=== PATIENT | female | born 1950 | race Caucasian/White ===

== ENCOUNTER 2017-01-14 05:03 | Day surgery (SDC) | payer OTHER, MEDICARE ==
--- NOTE | ~2017-01-14 | OP ---
Record Of Operation [facility] [address] [place]. [address] NAME: JEANE LEI : 52 STATUS : REG [facility] [place] PAT#: [id number] AGE: 66 ADM/REG DATE : 01/14/17 MR#: [id number] REPORT SERV DATE: 01/14/17 DICTATED BY: VENANCIO NUÑEZ DATE: 01/14/17 REPORT STATUS : Draft TRANSCRIBED BY: MODL DATE: 01/14/17 DATE OF PROCEDURE: 01/14/2017 PREOPERATIVE DIAGNOSIS: Colon cancer. POSTOPERATIVE DIAGNOSIS: Colon cancer. PROCEDURE: Port-A-Cath placement. SURGEON: Venancio Nuñez M.D. RESIDENT SURGEON: Mark Castellano MD ANESTHESIA: MAC. ESTIMATED BLOOD LOSS: Less than 5 mL. IV FLUIDS: Approximately 500 mL of crystalloid. SPECIMEN: None. DRAINS: None. COMPLICATIONS: None. FINDINGS: 6-Puerto Rican Port-A-Cath was placed at the tip, but just proximal to the SVC right atrial junction. INDICATIONS FOR PROCEDURE: This 66-year-old female, who recently underwent a laparoscopic right colectomy for colon cancer and is now in need of central venous access on long-term for chemotherapy treatment. The above procedure was offered to the patient. Risks, benefits, and alternatives were explained, the patient expressed verbal understanding and wished to proceed for this elective procedure. DESCRIPTION OF PROCEDURE: After informed consent was obtained, the patient was taken back to the operating theatre, the patient was then laid on the operating table in supine position. The patient was given adequate analgesia and anesthesia, and the surgery site was then prepped and draped in a standard fashion. A formal time-out was then performed. Appropriate preoperative antibiotics had been administered. All present in the operating room were in agreement and elected to proceed with the procedure. We began by administering local anesthetic on the right side of the neck over the right internal jugular vein over the right clavicle, and then to the right chest wall, and then under ultrasound guidance, located the right internal jugular vein, accessed it with an 18-gauge access needle. We cannulated the right internal jugular vein. We then secured the guidewire to the sterile drapes. We then made an incision over the right chest wall just inferior to the right clavicle, and use of electrocautery and blunt dissection to create a pocket for our port. Record Of Operation [facility] [address] [facility] [address] NAME: JEANE LEI : 52 STATUS : REG [facility] [place] PAT#: [id number] AGE: 66 ADM/REG DATE : 01/14/17 MR#: [id number] REPORT SERV DATE: 01/14/17 DICTATED BY: VENANCIO NUÑEZ DATE: 01/14/17 REPORT STATUS : Draft TRANSCRIBED BY: ALEXIA DATE: 01/14/17 We then placed two anchoring sutures of 3-0 Vicryl in the medial and lateral area of our incision onto the chest wall, threaded this through our port but not placed in the pocket just yet. We then jody an incision over our guidewire with an 11 blade into the dilator sheath and passed over the guidewire until into place, removed the guidewire and dilator leaving the peel-away sheath in place, put into position. We then took our 6-Puerto Rican catheter and advanced it down the peel-away sheath and then removed the peel-away sheath. We pulled the catheter back until it was approximately at 15 cm. Then using the fluoroscopy, reviewed that the catheter tip was just proximal to the SVC right atrial junction. We then connected the distal end of our 6-Puerto Rican catheter to the tunneler and tunneled down to our pre-created right chest wall pocket, and cut the catheter to sufficient length, attached to the port which was placed in the pocket and secured down with our anchoring sutures. We then accessed the port with a Roberts needle. We had a good blood return irrigated easily as well. We took one final fluoroscopy picture noting that the port was in good position and there was a gentle curve throughout the catheter, no kinks, and the tip remained just proximal to the SVC right atrial junction. Hemostasis was noted to be achieved in all port pocket. We then reapproximated the skin edges with 3-0 Vicryl in simple interrupted fashion, and then placed Steri-Strips, and a dressing over it, as well as over the right IJ access site, and sterile dressing was then applied over this. Now, the patient was awake, vital signs were stable. The patient was transferred to the recovery room stable condition. DICTATED BY: MD JANNIE Vega/ALEXIA Venancio Nuñez M.D. / [id number] CC: Meme Holguin M.D.
[~2017-01-14 05:03] MED LIST: DENIES HOME MEDS; FERROUS SULF325 M1 PO; PCET PO; PRIN10 PO
[2017-01-14 06:24] LABS: BUN (BLOOD UREA NITROGEN) 9 MG/DL (6-23); CALCIUM, SERUM 8.8 MG/DL (8.5-10.4); CHLORIDE, SERUM 107 MMOL/L (96-112); CO2 (CARBON DIOXIDE) 27 MMOL/L (24-34); CREATININE 0.81 MG/DL (0.55-1.02); GFR AFRICAN AMERICAN 88 ML/MIN (>=60); GFR NON AFRICAN AMERICAN 76 ML/MIN (>=60); POTASSIUM, SERUM 4.6 MMOL/L (3.5-5.3); SODIUM, SERUM 144 MMOL/L (135-148)
[2017-01-14 06:28] LABS: GLUCOSE, SERUM 162 MG/DL (60-99)
== END 2017-01-14 17:11 | disposition home or self-care (01) ==
LOC: SDC 05:03
PROVIDERS: Specialist
PROC: 05HM33Z Insertion of Infusion Device into Right Internal Jugular Vein, Percutaneous Approach (ICD-10-PCS; principal; 2017-01-14 07:30)
DX: C18.9 Malignant neoplasm of colon, unspecified (principal); I10 Essential (primary) hypertension; E11.9 Type 2 diabetes mellitus without complications; D64.9 Anemia, unspecified; M19.90 Unspecified osteoarthritis, unspecified site; Z87.891 Personal history of nicotine dependence; Z90.49 Acquired absence of other specified parts of digestive tract; Z90.710 Acquired absence of both cervix and uterus; Z88.1 Allergy status to other antibiotic agents; Z79.899 Other long term (current) drug therapy; Z98.890 Other specified postprocedural states
CPT/HCPCS: 71010; 76000; 77001; 80048; 82962; C1788; J0690; J2250; J3010